=== PATIENT | female | born 1995 | race Caucasian/White ===

== ENCOUNTER 2016-11-29 17:14 | Emergency (ER) | payer OTHER ==
[2016-11-29 17:27] VITALS: BP 131/80; PULSE 73; RESP 18; TEMP 98.1
--- NOTE | 2016-11-29 17:40 | ED ---
General Adult HPI - General Chief complaint: Fall Stated complaint: Head Injury Time Seen by Provider: 11/29/16 17:21 Source: patient, EMS, RN notes reviewed Mode of arrival: EMS Limitations: no limitations - History of Present Illness Initial comments: Is a 21-year-old female presents today with a laceration to the left eyebrow. Patient was brought in by EMS. Patient states she slipped in a chair and hit her head on a table and the back of the chair hit her in the neck. Patient states she did not lose consciousness but complains of headache and lightheadedness after the fall. Patient states she had a mild episode of blurred vision during the ambulance ride but this has improved. Patient denies being on any medication. Patient denies any nausea/vomiting/diarrhea. Patient does complain of some mild cervical neck pain. Patient denies any back pain, numbness/tingling or weakness in the bilateral upper or lower extremities. Patient states she is "100% sure" she is not . Patient denies any recent fever, chills, shortness breath, chest pain, abdominal pain, nausea/ vomiting/diarrhea, back pain, hematuria, or any other complaints. - Related Data Home Medications Medication Instructions Recorded Confirmed No Known Home Medications [No 11/29/16 11/29/16 Known Home Medications] Allergies Allergy/AdvReac Type Severity Reaction Status Date / Time No Known Allergies Allergy Verified 11/29/16 17:27 Review of Systems ROS Statement: Those systems with pertinent positive or pertinent negative responses have been documented in the HPI. ROS Other: All systems not noted in ROS Statement are negative. Past Medical History Past Medical History: No Reported History History of Any Multi-Drug Resistant Organisms: None Reported Past Surgical History: Unable to Obtain Past Psychological History: Anxiety, Depression Smoking Status: Never smoker Past Alcohol Use History: Rare Past Drug Use History: None Reported General Exam - General Exam Comments Initial Comments: General: The patient is awake and alert, in no distress, and does not appear acutely ill. Eye: Pupils are equal, round and reactive to light, extra-ocular movements are intact. No nystagmus. There is normal conjunctiva bilaterally. No signs of icterus. Ears: TMs pink and pearly with intact cone of light bilaterally. Normal external ear canals. Nose: Nasal turbinates pink and moist Mouth and throat: There are moist mucous membranes and no oral lesions. Neck: Mild cervical midline tenderness around levels C5 to C6. The neck is supple, there is no JVD. Cardiovascular: There is a regular rate and rhythm. No murmur, rub or gallop is appreciated. Respiratory: Lungs are clear to auscultation, respirations are non-labored, breath sounds are equal. No wheezes, stridor, rales, or rhonchi. Gastrointestinal: Soft, non-distended, non-tender abdomen without masses or organomegaly noted. There is no rebound or guarding present. Bowel sounds are unremarkable. Musculoskeletal: Normal ROM, no tenderness. Strength 5/5. Sensation intact. Radial pulses equal bilaterally 2+. Neurological: A&O x 3. CN II-XII intact, There are no obvious motor or sensory deficits. Coordination appears grossly intact. Speech is normal. Skin: There is an approximately 2.5 cm laceration to the left eyebrow. Skin is warm and dry and no rashes or lesions are noted. Psychiatric: Cooperative, appropriate mood & affect, normal judgment. Limitations: no limitations Course Vital Signs 11/29/16 17:21 Temperature 98.1 F Pulse Rate 73 Respiratory 18 Rate Blood Pressure 131/80 Procedures - Procedures Initial comment: The skin was anesthetized with 1% lidocaine. The laceration was then cleansed and irrigated with normal saline. The wound was inspected, and there was no evidence of injury to deep structures. No foreign body was noted in the wound. A total of 7 skin sutures were placed utilizing 5-0 Ethilon. Laceration is approx and 2.5 cm. Medical Decision Making - Medical Decision Making Is a 21-year-old female presents for laceration of the left eyebrow after hitting her head on a table. Physical exam there is mild cervical midline tenderness around the levels of C5 C6. Patient is neurologically intact. There is an approximately 2.5 cm laceration to the left eyebrow. Due to complaints of headache, brief visual changes and lightheadedness and cervical midline tenderness a computed tomography scan of the brain and C-spine was done without contrast showing: #1 there is no acute fracture or dislocation evident in the cervical spine. #2 no acute intracranial hemorrhage, mass effect, or midline shift seen. Reported by Dr. Bautista. Imaging was reviewed and discussed with patient and her mother who was also present in the room. The skin was anesthetized with 1% lidocaine. The laceration was then cleansed and irrigated with normal saline. The wound was inspected, and there was no evidence of injury to deep structures. No foreign body was noted in the wound. A total of 7 skin sutures were placed utilizing 5-0 Ethilon. Laceration is approx and 2.5 cm. discussed suture care. Discussed suture removal in 5 days. Discussed to keep the area clean and dry and do not submerge the wound water but rinsing and showering are okay. Discussed signs and symptoms of worsening head injury. Discussed to avoid activities that make headache symptoms worse. Discussed [id number] Tylenol or Motrin as needed for any pain. Discussed close follow-up with her primary care physician. Discussed return parameters. Discussed that patient should follow up with PCP in one to 2 days or return to the [facility] for any worsening symptoms or for any further concerns. Patient was receptive to this plan and patient will be discharged home. Patient's mother and father also present in the room during exam. All questions are answered. Disposition Clinical Impression: Laceration of eyebrow, left, Head injury Disposition: HOME SELF-CARE Condition: Good Instructions: Care For Your Stitches (ED) Additional Instructions: Please have sutures removed in 5 days. Please keep the area clean and dry and avoid submerging the wound underwater. Rinsing and showering are okay. Please use [id number] Tylenol and or Motrin as needed for pain. Please follow- up with family doctor in the next 2 days of symptoms have not improved. Please return to emergency room if the symptoms increase or worsen or for any other concerns. Referrals: None,Stated [Primary Care Provider] - 1-2 days Time of Disposition: 18:53
--- NOTE | 2016-11-29 18:15 | CT ---
EXAMINATION TYPE: CT brain nato wo con DATE OF EXAM: 11/29/2016 6:04 PM COMPARISON: NONE HISTORY: Fall with frontal head injury and headache and neck pain. CT DLP: 1345.50 mGycm Automated exposure control for dose reduction was used. TECHNIQUE: CT scan of the head and cervical spine are performed without contrast. FINDINGS: There is no acute intracranial hemorrhage, mass effect, or midline shift identified. The ventricles and sulci are within normal limits in size. The globes are intact and the visualized sin uses are clear. Cervical spine is visualized in its entirety from C1 through upper thoracic levels and demonstrates s atisfactory alignment without evidence of acute fracture or dislocation. Prevertebral soft tissue ap pears within normal limits. The C1-C2 articulation is unremarkable. IMPRESSION: 1. There is no acute fracture or dislocation evident in the cervical spine. 2. No acute intracranial hemorrhage, mass effect, or midline shift is seen.
== END 2016-11-29 18:59 | disposition home or self-care (01) ==
LOC: EC 17:14
DX: S01.112A Laceration without foreign body of left eyelid and periocular area, initial encounter (principal); S09.90XA Unspecified injury of head, initial encounter; M54.2 Cervicalgia; W22.09XA Striking against other stationary object, initial encounter
CPT/HCPCS: 12011; 70450; 72125; 99283

== ENCOUNTER 2018-06-04 21:18 | Emergency (ER) | payer OTHER ==
[2018-06-04 21:59] VITALS: BP 128/87; PULSE 71; RESP 18; TEMP 98.4
== END 2018-06-05 00:13 | disposition home or self-care (01) ==
LOC: EC 21:18
DX: L60.0 Ingrowing nail (principal)
CPT/HCPCS: 99283

== ENCOUNTER → 2024-10-22 | Outpatient (CLI) | payer OTHER ==
--- NOTE | 2024-10-23 19:37 | MR ---
EXAMINATION TYPE: MR brain wo con DATE OF EXAM: 10/22/2024 12:43 PM COMPARISON: None. 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 Prior head injury 2017 TECHNIQUE: Multiplanar, multiecho imaging on a 3.0 Salima magnet is performed through the brain. Stud y is performed within 24 hours of arrival to the hospital.Multiplanar, multiecho imaging on a 3.0 Barb la magnet is performed through the knee. IV Contrast: mL (None, if empty) FINDINGS: The craniovertebral junction is normal. The pituitary is normal. Optic chiasm is normal. Diffusion-weighted imaging is performed. No abnormal hyperintensity is present to suggest an acute i ntracranial infarct or acute ischemic change. No signal abnormality is evident. Ventricles and sulci are appropriate for the patient age. IMPRESSION: 1. Unremarkable noncontrast MRI brain. [facility], , 10/23/2024 7:35 PM
== END | disposition home or self-care (01) ==
LOC: RADMRIMAIN 11:27
PROVIDERS: ATTEND Optometrist
DX: G93.2 Benign intracranial hypertension (principal)
CPT/HCPCS: 70551